=== PATIENT | male | born 1980 | race Caucasian/White ===

== ENCOUNTER 2021-09-20 17:59 | Emergency (ER) | payer BC, OTHER ==
[2021-09-20 19:32] VITALS: BP 138/95; PULSE 78
== END 2021-09-20 20:31 | disposition home or self-care (01) ==
LOC: JD.ED 17:59
DX: S97.82XA Crushing injury of left foot, initial encounter (principal); S97.02XA Crushing injury of left ankle, initial encounter; S80.812A Abrasion, left lower leg, initial encounter; S90.512A Abrasion, left ankle, initial encounter; W23.1XXA Caught, crushed, jammed, or pinched between stationary objects, initial encounter
CPT/HCPCS: 73630-26-LT; 73630-LT; 99283